=== PATIENT | female | born 1960 | race Caucasian/White ===

== ENCOUNTER 2018-03-20 12:39 | Day surgery (SDC) | payer BC ==
[2018-03-20] MEDS ORDERED: LIDOCAINE 2% MDV (20MG/ML) 20ML VIAL IV ONE (12:40)
[2018-03-20] MEDS ORDERED: PROPOFOL 10 MG/ML VIAL IV ONE (12:40)
--- NOTE | 2018-03-25 16:50 | Operative Note ---
DATE OF SURGERY: OPERATION: COLONOSCOPY with cold forceps polypectomy. PREOPERATIVE DIAGNOSIS: Family history of colon cancer. POSTOPERATIVE DIAGNOSES: 1. Sigmoid diverticulosis, mild. 2. Descending colon polyps x2, status post cold forceps removal x2. PREPARATION QUALITY: Good to excellent. ESTIMATED BLOOD LOSS: Minimum. SPECIMENS: Descending colon polyps. COMPLICATIONS: None apparent. PROCEDURE: After informed consent was obtained from the patient, she was placed in the left lateral decubitus position in the endoscopy suite, sedated and monitored by the department of anesthesia. Digital rectal examination was unremarkable. A well-lubricated [id number] colonoscope was inserted into the rectum and advanced to the cecum. The cecum and cecal bulb were noted by the ileocecal valve and appendiceal orifice and were unremarkable. The preparation quality was good to excellent. The cecum, ascending colon, and transverse colon were otherwise unremarkable as well. In the descending colon there were 2 diminutive polyps each removed with a cold forceps. The sigmoid colon revealed mild diverticulosis. The rectum was unremarkable in forward and J-turn views. The endoscope was straightened, the rectal ampulla deflated, and the endoscope was removed. RECOMMENDATIONS: I would suggest the patient follow a high-fiber diet and use a fiber supplement as needed. She should undergo repeat exam in 5 years pending tissue histology. In addition, given her family history, I would strongly suggest the family consider undergoing genetic testing. [facility] offers genetic testing through saliva specimens. I think the family should consider this. I have asked the patient to discuss this with her family. If our office can be of assistance in facilitating this, please let us know. As always, thank you for allowing me to participate in the healthcare of your patients. CC: ROXANA BULLOCK MD, FACP [facility]ilda
== END 2018-03-20 13:03 | disposition home or self-care (01) ==
LOC: HOP 12:39
PROVIDERS: ATTEND Internal Medicine Gastroenterology
DX: Z12.11 Encounter for screening for malignant neoplasm of colon (principal); Z80.0 Family history of malignant neoplasm of digestive organs; D12.4 Benign neoplasm of descending colon; K57.30 Diverticulosis of large intestine without perforation or abscess without bleeding